=== PATIENT | male | born 1990 | race American Indian/Alaskan Native ===

== ENCOUNTER 2021-11-27 13:11 | Emergency (ER) | payer BC ==
[2021-11-27] MEDS: QUEtiapine 25 MG Tab PO ONE (15:05)
== END 2021-11-27 19:55 ==
LOC: JP.ED 13:11
DX: R45.851 Suicidal ideations (principal); F10.10 Alcohol abuse, uncomplicated; F19.10 Other psychoactive substance abuse, uncomplicated; Z88.2 Allergy status to sulfonamides; Z79.899 Other long term (current) drug therapy; Z20.822 Contact with and (suspected) exposure to COVID-19
CPT/HCPCS: 36415; 80143; 80179; 80305; 80307; 84443; 87635; 99285; A9270; U0002